=== PATIENT | male | born 1970 ===

== ENCOUNTER 2021-06-13 06:47 | Day surgery (SDC) | payer OTHER ==
--- NOTE | 2021-06-03 14:03 | Anesthesia Consultation ---
Anesthesia Consult and Med Hx Date of service: 06/13/21 - Airway Mallampati Class: Class III Intubation Access Assessment: Probably Good - Pre-Operative Health Status ASA Pre-Surgery Classification: ASA3 Proposed Anesthetic Plan: General - Pulmonary Hx Smoking: No Hx Respiratory Symptoms: No (+2FS) Hx Sleep Apnea: Yes (DX SLEEP APNEA WITH CPAP USE) - Cardiovascular System Hx Hypertension: Yes (Closure of PFO [id number] because of CVA. Notes in chart) Hx Heart Attack/AMI: No - Central Nervous System CVA: Yes (TROUBLE FINDING THE RIGHT WORDS, BALANCE ISSUES) Hx Psychiatric Problems: Yes (Anxiety/Depression) - Endocrine Hx Renal Disease: Yes (Hx stones) Hx End Stage Renal Disease: No Hx Thyroid Disease: Yes Hx Hypothyroidism: Yes (ON DAILY MEDS) - Hematic Hx Anemia: No Hx Sickle Cell Disease: No - Other Systems Hx Alcohol Use: No Hx Substance Use: No Hx Cancer: No Hx Obesity: Yes
[2021-06-03 15:25] LABS: Alanine Aminotransferase 16 units/L (7-56); Albumin 4.5 g/dL (3.9-5); BUN/Creatinine Ratio 19; Blood Urea Nitrogen 17 mg/dL (9-20); Calcium 9.5 mg/dL (8.4-10.2); Hemolysis Index 10
[2021-06-03 16:04] LABS: Hemoglobin 13.8 gm/dl (11.8-15.2); Mean Corpuscular HGB Conc 35 % (32-34); Mean Corpuscular Volume 87 fl (84-94); Platelet Count 190 K/mm3 (140-440); Red Blood Count 4.58 M/mm3 (3.65-5.03); Red Cell Distribution Width 13.8 % (13.2-15.2)
[~2021-06-13 06:47] MED LIST: LACTATED RINGERS 1,000 ML IV SCH; MIDAZOLAM 2 MG/2 ML INJ IV NR; NEOMY 40 MG/POLYMYXIN B 200,000 UNITS/ML (GU) AMPULE IR ONE; SODIUM CHLORIDE 0.9% IRR 1,500 ML BOTTLE IR ONE
[2021-06-13] MEDS ORDERED: NEOMY 40 MG/POLYMYXIN B 200,000 UNITS/ML (GU) AMPULE IR ONE ×2 (07:03→09:11)
[2021-06-13] MEDS ORDERED: LIDOCAINE MPF (2%) 20 MG/1 ML VIAL 5 ML ONE (07:11)
[2021-06-13] MEDS ORDERED: propofoL 200 MG/20 ML VIAL IV ONE (07:11)
--- NOTE | 2021-06-13 07:23 | Anesthesia Day of Surgery ---
Anesthesia Day of Surgery - Day of Surgery Patient Examined: Yes Patient H&P Reviewed: Yes Patient is NPO: Yes
[2021-06-13] MEDS ORDERED: ceFAZolin/Water 2 GM/20 ML 2 GM/20 ML SYRINGE IV NR (07:30)
[2021-06-13] MEDS ORDERED: MIDAZOLAM 2 MG/2 ML INJ ONE (07:38)
[2021-06-13] MEDS ORDERED: ONDANSETRON 4 MG/2 ML INJ IV PRN (08:30)
[2021-06-13] MEDS ORDERED: oxyCODONE /ACETAMINOPHEN 5-325MG TAB PO PRN (08:30)
[2021-06-13] MEDS ORDERED: HYDROmorphone 1 MG/1 ML INJ IV PRN (08:30)
--- NOTE | 2021-06-13 08:30 | Discharge Summary ---
Short Stay Discharge Plan Activity: other (no straining no sex ) Weight Bearing Status: Full Weight Bearing Diet: low fat, low cholesterol, low salt Wound: open to air Special Instructions: other (remove dressing after 8 pm) Follow up with: PRIMARY CARE, [Primary Care Provider] - 7 Days LIBBY GALLARDO MD [Staff Physician] - 7 Days
--- NOTE | 2021-06-13 08:31 | Post Operative Note ---
Date of procedure: 06/13/21 Pre-op diagnosis: for circ Post-op diagnosis: same Procedure: circ Anesthesia: GETA Surgeon: LIBBY GALLARDO Estimated blood loss: minimal Pathology: none Specimen disposition: to lab Condition: stable Disposition: PACU
[2021-06-13] MEDS ORDERED: fentaNYL 100 MCG/2 ML INJ ONE (08:41)
[2021-06-13] MEDS ORDERED: SODIUM CHLORIDE 0.9% IRR 1,500 ML BOTTLE IR ONE (09:11)
[2021-06-13] MEDS ORDERED: BUPIVACAINE/PF (0.25%) 2.5 MG/ML 10 ML VIAL INFILTRATI ONE ×2 (09:47→09:55)
[2021-06-13] MEDS ORDERED: ONDANSETRON 4 MG/2 ML INJ ONE (10:09)
[2021-06-13] MEDS ORDERED: dexAMETHasone 20 MG/5 ML VIAL ONE (10:09)
[2021-06-13 11:13] VITALS: BP 110/71
--- NOTE | 2021-06-13 12:48 | Operative Report ---
DATE OF SURGERY: 06/13/2021 PREOPERATIVE DIAGNOSIS: Balanitis and requested circumcision. POSTOPERATIVE DIAGNOSIS: Balanitis and requested circumcision. PROCEDURE: Circumcision, sleeve technique. SURGEON: Jason Park MD ANESTHESIA: General. FINDINGS: This is a gentleman who elected to undergo circumcision. All risks and implications discussed. He has occasional irritation of the glans and foreskin. DESCRIPTION OF PROCEDURE: The patient was brought to operating room and placed on the operating table. Following induction of anesthesia, placed in the supine position, prepped and draped in usual sterile fashion. The area for circumcision was marked out. This is also part of a conversion process. The rabbi made the initial small cut and the circumcision was done. The patient tolerated the procedure well. Sutures were placed at 12, 3, 6, and 9 o'clock position and the area was sutured with 3-0 chromic. The patient tolerated the procedure well. Minimal blood loss. A sterile dressing was applied. Instructions given. Brought to recovery in stable condition. TID: [id number] RECEIPT: [id number] MARIA DEL CARMEN/DELILAH
--- NOTE | 2021-06-13 15:02 | Post Anesthesia Evaluation ---
- Post Anesthesia Evaluation Patient Participated: Yes Airway Patent: Yes Stable Respiratory Function: Yes Nausea/Vomiting: No Temp > 96.8F: Yes Pain Manageable: Yes Adequeate Hydration: Yes Anesthesia Complications: No
== END 2021-06-13 12:00 | disposition home or self-care (01) ==
LOC: OR 06:47
PROVIDERS: ATTEND Urology
DX: N48.1 Balanitis (principal); Z20.822 Contact with and (suspected) exposure to COVID-19; I10 Essential (primary) hypertension; G47.33 Obstructive sleep apnea (adult) (pediatric); F41.9 Anxiety disorder, unspecified; F32.9 Major depressive disorder, single episode, unspecified; E03.9 Hypothyroidism, unspecified; E66.9 Obesity, unspecified; Z87.442 Personal history of urinary calculi; Z86.73 Personal history of transient ischemic attack (TIA), and cerebral infarction without residual deficits; Z79.899 Other long term (current) drug therapy; Z98.890 Other specified postprocedural states
CPT/HCPCS: 36415; 54161; 80053; 85027; 88304; J1100; J1170; J2250; J2405; J2704; J3010; J7120; U0003